=== PATIENT | female | born 1945 | race Caucasian/White ===

== ENCOUNTER 2023-01-08 06:32 | Day surgery (SDC) | payer MEDICARE, BC, SELFPAY ==
[2023-01-08] VITALS (8 sets, daily range): BP systolic 134–161; BP diastolic 55–71; PULSE 54–62; RESP 16–18; TEMP 36.7–37.1; O2SAT 94–100; BMI 23.8
[2023-01-08] MEDS: ETHYL CHLORIDE 1 APPLICATION 1 APPLIC TOPICAL (06:45)
[2023-01-08] MEDS: BUPIVACAINE 0.5% 30 ML INJECTION (06:48)
--- NOTE | 2023-01-08 06:50 | SUR.PREOP ---
SAME DAY SURGERY LOCAL INJECTION SITE VERIFICATION WAS PERFORMED BY SURGEON/PA AND PATIENT PRIOR TO LOCAL ANESTHETIC BEING INJECTED TO OPERATIVE SITE.
[2023-01-08] MEDS: lidocaine HCL 2 % MULTIDOSE 20 ML VIAL INJECTION (07:13)
--- NOTE | 2023-01-08 07:55 | P.ORPRC_ITS ---
Procedure Note Date of procedure: 01/08/23 Procedure: PREOPERATIVE DIAGNOSIS: 1. Right dorsal long finger near the PIP joint benign mass/cyst POSTOPERATIVE DIAGNOSIS: 1. Right dorsal long finger near the PIP joint benign mass/cyst PROCEDURE: 1. Right dorsal long finger near the PIP joint benign mass/cyst open excision SURGEON: Kiel Johnson MD. [facility]ASH PREPARATORY OPERATOR: Eliana Langford Pa-c - Of note, an infertility medical assistant was critical for this case to aid in patient positioning, tissue retraction, limb manipulation/ positioning, and closure. ANESTHESIA: Local anesthetic (50:50 mixture of 2% lidocaine plain and 0.5% marcaine plain) IMPLANTS: None TOURNIQUET: 5 minutes digital tourni-cot COMPLICATIONS: None evident INDICATIONS: The patient is a pleasant 77-year-old female who has experienced right dorsal long finger growth with pain that has progressively gotten worse. Nonoperative management has been tried but unsuccessful. Given the failure of nonoperative management, and how this affects daily life, surgery was recommended. DESCRIPTION OF PROCEDURE: Following a thorough discussion of risks, benefits, and alternatives consent was obtained and the operative extremity was marked. The patient was brought to the operating room and placed supine on the operating table. No antibiotics were administered as this was planned to be a local case only. Proper time-out was performed identifying proper patient, site, and procedure. The operative extremity was prepped and draped in the appropriate st erile fashion using ChloraPrep. The limb was exsanguinated and the tourniquet inflated. An incision was made on the dorsal aspect of the long finger overlying the PIP joint. Sharp incision through the skin, and blunt dissection through subcutaneous tissue allowed us to protect crossing neurologic structures. Immediately, the mass/cystic structure was identified. This was mobilized from the surrounding tissue. It seemed to have a stalk that tracked distally with extensor tendon. The stalk was cauterized with bipolar. At this stage, the tourniquet was released and hemostasis achieved. Closure was performed with 4-O nylon. Soft dressings were applied, and the patient was awoken/transferred to the recovery room in stable condition. PLAN: 1. Encourage elevation of the operative extremity. 2. Range of motion of the operative extremity/digits as tolerated. 3. Ibuprofen, acetaminophen as needed for pain. 4. Follow up with PA visit in 12-16 days for wound check and suture removal.
[2023-01-08] MEDS: ACETAMINOPHEN 325 MG TABLET PO (08:30)
== END 2023-01-08 08:40 | disposition home or self-care (01) ==
PROVIDERS: PCP Family Medicine; Visit Provider Orthopaedic Surgery Sports Medicine
PROC: (CPT 26160; principal; 2023-01-08 07:30)
DX: M67.441 Ganglion, right hand (principal)
CPT/HCPCS: 26160; 88304; A9270; J0665

== ENCOUNTER 2023-05-30 07:30 | Outpatient (RCR) | payer MEDICARE, BC, SELFPAY ==
--- NOTE | 2023-06-14 13:52 | REH.OT ---
Received a call from Dr Greenberg today. States that pt was in her office and was unhappy about her compression sleeve, states it bothered her when she tried to sign and it was difficult to put on. Wondering if she could discontinue it. Discussed potential issues with discontinuing the compression, especially the risk for infection. Discussed that pt be very aware of s/s of infection and understands that she will need to see MD immediately if she feels she is getting an infection in order to allow for early treatment. Pt understands these risks and is wanting to discontinue the sleeve. It was decided that the sleeve will be discontinued, pt will monitor.
== END 2023-09-27 23:59 | disposition home or self-care (01) ==
PROVIDERS: PCP Family Medicine; Visit Provider Family Medicine
DX: M79.89 Other specified soft tissue disorders (principal); Z51.89 Encounter for other specified aftercare
CPT/HCPCS: 97110; 97140; 97165; 97166; 97530; 97535; X5282

== ENCOUNTER 2024-08-23 10:56 | Outpatient (CLI) | payer MEDICARE, BC, SELFPAY | END 2024-08-23 10:57 | disposition home or self-care (01) | LOC: AMB 08-25 09:55 | PROVIDERS: PCP Family Medicine; Visit Provider Family Medicine | DX: S09.90XA Unspecified injury of head, initial encounter (principal); R53.1 Weakness; W01.10XA Fall on same level from slipping, tripping and stumbling with subsequent striking against unspecified object, initial encounter; Y92.009 Unspecified place in unspecified non-institutional (private) residence as the place of occurrence of the external cause | CPT/HCPCS: A0998 ==